=== PATIENT | male | born 1970 | race Caucasian/White ===

== ENCOUNTER 2020-02-19 12:22 | Day surgery (SDC) | payer BC, OTHER ==
[2020-02-19] MEDS ORDERED: Sodium Chloride 0.9% 10 ML Syringe FLUSH PRN (13:01)
[2020-02-19] MEDS ORDERED: Ertapenem 1 GM in Sodium Chloride 0.9% 50 ML IV ONE (13:01)
[2020-02-19] MEDS ORDERED: Lactated Ringers 1,000 ML IV SCH (13:02)
--- NOTE | 2020-02-19 14:31 | PCM.PREANE ---
Preanesthetic Assessment - Procedure Proposed Procedure: possible lap appy - Anesthesia/Transfusion/Family Hx Anesthesia History: Prior Anesthesia Without Reaction Family History of Anesthesia Reaction: No Transfusion History: No Prior Transfusion(s) - Review of Systems General: No Symptoms Pulmonary: No Symptoms Cardiovascular: No Symptoms Gastrointestinal: Abdominal Pain (pain for a day), Nausea, Vomiting (today at 11) Neurological: No Symptoms Other: Reports: None - Physical Assessment NPO Status Date: 02/18/20 (sip of water this am- noon) NPO Status Time: 19:00 Vital Signs: Last Vital Signs Temp 98.5 F 02/19/20 12:35 Pulse 67 02/19/20 12:35 Resp 20 02/19/20 12:35 BP 121/72 02/19/20 12:35 Pulse Ox 100 02/19/20 12:35 Height: 5 ft 10 in Weight: 91.172 kg ASA Class: 2E Mental Status: Alert & Oriented x3 Airway Class: Mallampati = 1 Dentition: Reports: Normal Dentition Thyro-Mental Finger Breadths: 3 Mouth Opening Finger Breadths: 3 ROM/Head Extension: Full Lungs: Clear to Auscultation, Normal Respiratory Effort Cardiovascular: Regular Rate, Regular Rhythm - Lab Values: Laboratory Last Values SARS-CoV-2 RNA (MJ) Negative (NEGATIVE) 02/19/20 13:30 - Allergies Allergies/Adverse Reactions: Allergies Allergy/AdvReac Type Severity Reaction Status Date / Time No Known Allergies Allergy Verified 02/19/20 12:43 - Blood Blood Available: No - Acknowledgements Anesthesia Type Planned: General Anesthesia Pt an Appropriate Candidate for the Planned Anesthesia: Yes Alternatives and Risks of Anesthesia Discussed w Pt/Guardian: Yes Pt/Guardian Understands and Agrees with Anesthesia Plan: Yes PreAnesthesia Questionnaire Cardiovascular History: Reports: None Respiratory History: Reports: None Gastrointestinal History: Reports: None Musculoskeletal History: Reports: Arthritis (left hip and lower back) Psychiatric History: Reports: None Endocrine/Metabolic History: Reports: None Oncologic (Cancer) History: Reports: None - Past Surgical History Musculoskeletal Surgical History: Reports: Hip Replacement - History Comment History Comment: takes callogen, vit c fish oil, glucosamine, tumeric, sileniam, multivit - SUBSTANCE USE Tobacco Use Status *Q: Never Tobacco User Tobacco Use Within Last Twelve Months: No Second Hand Smoke Exposure: No Days Per Week of Alcohol Use: 2 Number of Drinks Per Day: 2 Total Drinks Per Week: 4 Recreational Drug Use History: No - CURRENT (IN HOUSE) MEDS Current Meds: Current Medications Lactated Ringer's (Ringers, Lactated) 1,000 mls @ 100 mls/hr IV ASDIRECTED NERISSA Last Admin: 02/19/20 13:23 Dose: 100 mls/hr Documented by: Sodium Chloride (Saline Flush) 10 ml FLUSH ASDIRECTED PRN PRN Reason: Keep Vein Open Last Admin: 02/19/20 13:23 Dose: 10 ml Documented by: Discontinued Medications Ertapenem 1 gm/ Sodium (Chloride) 50 mls @ 100 mls/hr IV ONETIME ONE Stop: 02/19/20 13:30 Last Admin: 02/19/20 13:22 Dose: 100 mls/hr Documented by:
[2020-02-19] MEDS ORDERED: Lidocaine 1% 4 ML ONE (15:15)
[2020-02-19] MEDS ORDERED: Ondansetron 4 MG/2 ML SDV ONE ×2 (15:15→16:56)
[2020-02-19] MEDS ORDERED: Rocuronium 50 MG/5 ML Vial ONE (15:15)
[2020-02-19] MEDS ORDERED: fentaNYL 250 MCG/5 ML SDV ONE (15:16)
[2020-02-19] MEDS ORDERED: Propofol 200 MG/20 ML SDV ONE (15:16)
[2020-02-19] MEDS ORDERED: Midazolam 1 MG/ML 2 ML SDV ONE (15:16)
--- NOTE | 2020-02-19 15:21 | PCM.HP.2 ---
H&P History of Present Illness - General Date of Service: 02/19/20 Admit Problem/Dx: Acute appendicitis Source of Information: Patient History Limitations: Reports: No Limitations - History of Present Illness Initial Comments - Free Text/Narative: Patient started noticing RLQ pain last night after dinner. Pain progressed to where it became severe. Pain is sharp, Located in the RLQ, Associated with calixto sea and vomiting x 2. No diarrhea. No prior abd surgeries. No fevers. No cardiopulmonary issues. Onset of Symptoms: Reports: Gradual Duration of Symptoms: Reports: Day(s): (1), Getting Worse Location: Reports: Abdomen (rlq) Quality: Reports: Sharp Severity: Moderate Improves with: Reports: Immobilization Worsens with: Reports: Movement Context: Reports: Other (appendicitis) Associated Symptoms: Reports: Nausea/Vomiting Right Lower Abdominal Pain Score (Numeric/FACES): 6 - Related Data Allergies/Adverse Reactions: Allergies Allergy/AdvReac Type Severity Reaction Status Date / Time No Known Allergies Allergy Verified 02/19/20 12:43 Past Medical History Cardiovascular History: Reports: None Respiratory History: Reports: None Gastrointestinal History: Reports: None Musculoskeletal History: Reports: Arthritis (left hip and lower back) Psychiatric History: Reports: None Endocrine/Metabolic History: Reports: None Oncologic (Cancer) History: Reports: None - Past Surgical History Musculoskeletal Surgical History: Reports: Hip Replacement - History Comment History Comment: takes callogen, vit c fish oil, glucosamine, tumeric, sileniam, multivit Social & Family History - Tobacco Use Tobacco Use Status *Q: Never Tobacco User Second Hand Smoke Exposure: No - Alcohol Use Days Per Week of Alcohol Use: 2 Number of Drinks Per Day: 2 Total Drinks Per Week: 4 - Recreational Drug Use Recreational Drug Use: No H&P Review of Systems - Review of Systems: Review Of Systems: See Below General: Reports: No Symptoms HEENT: Reports: No Symptoms Pulmonary: Reports: No Symptoms Cardiovascular: Reports: No Symptoms Gastrointestinal: Reports: No Symptoms Genitourinary: Reports: No Symptoms Musculoskeletal: Reports: Other (arthrisis in wrists) Skin: Reports: No Symptoms Psychiatric: Reports: No Symptoms Exam - Exam Exam: See Below - Vital Signs Vital Signs: Last Vital Signs Temp 98.5 F 02/19/20 12:35 Pulse 67 02/19/20 12:35 Resp 20 02/19/20 12:35 BP 121/72 02/19/20 12:35 Pulse Ox 100 02/19/20 12:35 Weight: 91.172 kg - Exam General: Alert, Oriented, Cooperative HEENT: Conjunctiva Clear Lungs: Clear to Auscultation, Normal Respiratory Effort Cardiovascular: Regular Rate, Regular Rhythm, Normal S1 GI/Abdominal Exam: Normal Bowel Sounds, Soft, No Organomegaly, No Distention, No Abnormal Bruit, Tender (RLQ) - Patient Data Lab Results Last 24 hrs: Laboratory Results - last 24 hr 02/19/20 Range/Units 13:30 SARS-CoV-2 RNA (MJ) Negative (NEGATIVE) Sepsis Event Note - Evaluation Sepsis Screening Result: No Definite Risk - Focused Exam Vital Signs: Vital Signs Temp Pulse Resp BP Pulse Ox 02/19/20 12:35 98.5 F 67 20 121/72 100 Problem List Initiated/Reviewed/Updated: No Orders Last 24hrs: Active Orders 24 hr Category Date Time Status Peripheral IV Care [RC] . DIRECTED Care 02/19/20 13:01 Active Lactated Ringers [Ringers, Lactated] 1,000 ml Med 02/19/20 13:02 Active IV ASDIRECTED Sodium Chloride 0.9% [Saline Flush] Med 02/19/20 13:01 Active 10 ml FLUSH ASDIRECTED PRN Peripheral IV Insertion Adult [OM.PC] Routine Oth 02/19/20 13:01 Ordered Medication Orders Lactated Ringer's (Ringers, Lactated) 1,000 mls @ 100 mls/hr IV ASDIRECTED NERISSA Last Admin: 02/19/20 13:23 Dose: 100 mls/hr Documented by: MARYCHUY Sodium Chloride (Saline Flush) 10 ml FLUSH ASDIRECTED PRN PRN Reason: Keep Vein Open Last Admin: 02/19/20 13:23 Dose: 10 ml Documented by: HERMMIC Assessment/Plan Comment:: Patient has acute appendicitis with appendicolith. I recommended we proceed with laparoscopic appendectomy, possible open. Risks, benefits and alternatives were discussed. Questions were answered and informed consent was obtained. We will proceed with surgery in a few hrs. Invanz given. - Mortality Measure Prognosis:: Good
[2020-02-19] MEDS ORDERED: Lidocaine 1% with EPINEPHrine 1:100,000 20 ML MDV ONE (15:28)
[2020-02-19] MEDS ORDERED: Dexamethasone 4 MG/ML 5 ML MDV ONE (16:00)
[2020-02-19] MEDS ORDERED: fentaNYL 100 MCG/2 ML SDV IVPUSH PRN (16:09)
[2020-02-19] MEDS ORDERED: HYDROmorphone 0.5 MG/0.5 ML Syringe IVPUSH PRN (16:09)
[2020-02-19] MEDS ORDERED: Ondansetron 4 MG/2 ML SDV IVPUSH PRN (16:09)
[2020-02-19] MEDS ORDERED: Lactated Ringers 1,000 ML ONE ×2 (16:18→16:28)
[2020-02-19] MEDS ORDERED: Ketorolac 30 MG/ML SDV ONE (16:19)
--- NOTE | 2020-02-19 17:01 | PCM.POSTAN ---
POST ANESTHESIA ASSESSMENT - MENTAL STATUS Mental Status: Alert, Oriented - VITAL SIGNS Vital Signs: Last Vital Signs Temp 98.4 F 02/19/20 16:50 Pulse 67 02/19/20 12:35 Resp 18 02/19/20 16:57 BP 125/63 02/19/20 16:50 Pulse Ox 100 02/19/20 16:57 - RESPIRATORY Respiratory Status: Respiratory Rate WNL, Airway Patent, O2 Saturation Stable, Supplemental Oxygen - CARDIOVASCULAR CV Status: Pulse Rate WNL, Blood Pressure Stable - GASTROINTESTINAL GI Status: No Symptoms - PAIN Pain Score: 0 - POST OP HYDRATION Hydration Status: Adequate & Stable
--- NOTE | 2020-02-19 17:14 | PCM48HPAN ---
Post Anesthesia Note - EVALUATION WITHIN 48HRS OF ANESTHETIC Vital Signs in Normal Range: Yes Patient Participated in Evaluation: Yes Respiratory Function Stable: Yes Airway Patent: Yes Cardiovascular Function Stable: Yes Hydration Status Stable: Yes Pain Control Satisfactory: Yes Nausea and Vomiting Control Satisfactory: Yes Mental Status Recovered: Yes Vital Signs: Last Vital Signs Temp 210.4 F H 02/19/20 17:05 Pulse 67 02/19/20 12:35 Resp 16 02/19/20 17:05 BP 110/60 02/19/20 17:05 Pulse Ox 100 02/19/20 17:05
--- NOTE | 2020-02-19 17:26 | OR ---
DATE OF OPERATION: 02/19/2020 SURGEON: Yvan Montelongo MD PREOPERATIVE DIAGNOSIS: Acute appendicitis. POSTOPERATIVE DIAGNOSIS: Acute appendicitis. OPERATION PERFORMED: Laparoscopic appendectomy. ANESTHESIA: General endotracheal. ESTIMATED BLOOD LOSS: 5 mL. COMPLICATIONS: None. DRAINS: None. INDICATION AND CONSENT: The patient is a 49-year-old male who started having right lower quadrant abdominal pain last night. Pain progressed, and the patient presented to [facility] where white count was 15, and CT scan showed acute appendicitis. The patient was asked to come to the emergency department, and I was consulted. I saw the patient, confirmed the findings of acute appendicitis, and offered the patient appendectomy. The patient had appendicolith with his appendicitis, and it was very dilated. We discussed risks, benefits, and alternatives, and informed consent was obtained. DESCRIPTION OF PROCEDURE: The patient was taken to the operating room, placed in supine position. The patient was padded appropriately, and then time-out was performed and then induction of anesthesia was done. IV antibiotics were already given, which was Invanz in the emergency department. Then, the patient's abdomen was clipped of hair and prepped and draped in the usual sterile fashion. Formal time-out was performed prior to the start of the procedure. I began the procedure by injecting local anesthetic consisting 1% lidocaine without epinephrine in the infraumbilical position. Incision was made. The umbilical stalk was elevated with Ping clamps, and a Veress needle was inserted into the abdomen. The abdomen was insufflated to 15 mmHg. Then, a 12 mm trocar was inserted under direct visualization of the laparoscope. Cursory examination of the abdomen did not reveal any obvious injuries. Two 5 mm trocars were placed, one in the suprapubic area and another one in the left lower quadrant. The patient was placed in Trendelenburg position and left side down, and we focused on the right lower quadrant. The appendix was identified in right lower quadrant. It was very dilated and dusky appearing but was not perforated. There was medium amount of inflammatory fluid around the appendix but not pus. The appendix was elevated. LigaSure Impact was used to divide the mesoappendix, and then, appendix was transected at its base, which was normal appearing with Endo TOREY stapler blue load. Then, the abdomen was reinspected again. There was no bleeding. There were no other abnormalities. The appendix was placed in the EndoCatch bag and removed through the infraumbilical incision. Then, the infraumbilical incision was closed at the fascial level with 0 Vicryl stitches using Wilfredo-Cedric device. Then, skin at all 3 sites were closed with 4-0 Monocryl, and Dermabond was applied. This marked the end of the procedure. Instruments, sharps, and sponges were counted twice, and they were correct. The patient will be allowed to recover and possibly return home today. MMODAL /[id number] ANA M
== END 2020-02-19 18:07 | disposition home or self-care (01) ==
LOC: JD.ED 12:22 → JD.SDS 15:10
PROVIDERS: ATTEND Surgery
DX: K35.30 Acute appendicitis with localized peritonitis, without perforation or gangrene (principal); Z98.890 Other specified postprocedural states; Z01.812 Encounter for preprocedural laboratory examination; Z20.828 Contact with and (suspected) exposure to other viral communicable diseases
CPT/HCPCS: 44970; 87635; J1100; J1335; J1885; J2001; J2250; J2405; J2704; J2710; J3010; J7120; 00840; U0002